=== PATIENT | male | born 1990 | race Caucasian/White ===

== ENCOUNTER 2020-10-13 11:48 | Emergency (ER) | payer BC ==
[~2020-10-13] VITALS: Ht 172.7 cm; Wt 95.3 kg
--- NOTE | 2020-10-13 11:57 | NUR ---
EKG IN ROOM
--- NOTE | 2020-10-13 12:00 | NUR ---
PT AMBULATORY TO ROOM FROM TRIAGE, CONNECTED TO MONITORS. PT C/O FLU LIKE SYMPTOMS FOR A COUPLE DAYS. MAIN C/O COUGH, BODY ACHES, SORE THROAT. PT STATES HE TESTED POSITIVE FOR COVID 1 YR AGO. CALL LIGHT WITHIN REACH, BED IN LOWEST POSITION, BED RAILS UP.
--- NOTE | 2020-10-13 12:55 | NUR ---
REPORT TO KEEGAN FIGUEROA
--- NOTE | 2020-10-13 13:15 | NUR ---
REPORT FROM COLTEN ALLISON. DR. REYEZ AT [facility] FOR ASSESSMENT. WILL FOLLOW ORDERS.
--- NOTE | 2020-10-13 14:50 | NUR ---
PT D/C'D PER ORDERS. PT VERBALIZED UNDERSTANDING OF D/C ORDERS. PT HAS ALL OWN BELONGINGS UPON D/C.
[2020-10-13 14:51] VITALS: BP 116/72
== END 2020-10-13 15:14 | disposition home or self-care (01) ==
LOC: ED 14:50
DX: U07.1 COVID-19 (principal); R00.0 Tachycardia, unspecified; R06.00 Dyspnea, unspecified; R06.02 Shortness of breath
CPT/HCPCS: 71045; 93005; 99285; U0003; U0005